=== PATIENT | male | born 1965 | race Caucasian/White ===

== ENCOUNTER 2017-04-12 21:38 | Emergency (ER) | payer MEDICAID ==
[~2017-04-12] VITALS: Ht 172.7 cm; Wt 74.1 kg
[~2017-04-12 21:38] MED LIST: BACL20TA PO; CYCL-1 PO; DICL75TA5 PO; DOCU-28 PO; FENT1PAT7 TOP; FLO0.4C PO; GABA-581 PO; LORA10TA7 PO; PANT-47 PO; PER10325T PO; VENL-191 PO; ZOLP10TA5 PO
[2017-04-12] MEDS ORDERED: ondansetron/PF 4mg/2ml inj IM ONE (22:25)
[2017-04-12] MEDS ORDERED: fentaNYL/PF 50MCG/1 ML 2ML syringe IM ONE (22:25)
[2017-04-12] MEDS ORDERED: ACET-1 PO (23:20)
[2017-04-12 23:36] VITALS: BP 112/75
== END 2017-04-12 23:38 | disposition home or self-care (01) ==
LOC: ER 21:39
DX: S39.92XA Unspecified injury of lower back, initial encounter (principal); J44.9 Chronic obstructive pulmonary disease, unspecified; F17.200 Nicotine dependence, unspecified, uncomplicated; F12.10 Cannabis abuse, uncomplicated; Z88.6 Allergy status to analgesic agent; Z88.8 Allergy status to other drugs, medicaments and biological substances; Y08.89XA Assault by other specified means, initial encounter; Y93.89 Activity, other specified; Y92.89 Other specified places as the place of occurrence of the external cause; Y99.8 Other external cause status
CPT/HCPCS: 72110; 96372; 99284; J2405; J3010

== ENCOUNTER 2020-03-20 09:09 | Emergency (ER) | payer MEDICAID ==
[~2020-03-20] VITALS: Ht 172.7 cm; Wt 77.3 kg
[~2020-03-20 09:09] MED LIST changes: +ACET-1 PO
[2020-03-20 09:35] VITALS: BP 117/74
--- NOTE | 2020-03-20 09:55 | NUR ---
PATIENT STATES HE IS JUST HERE TO GET DRESSING CHANGED OVER THE NEUROSTIMULATOR ON HIS BACK. STATES HE DOES NOT WANT LABWORK DRAWN OR A COVID TEST AT THIS TIME.
== END 2020-03-20 11:11 | disposition home or self-care (01) ==
LOC: ER 09:11
DX: T85.199A Other mechanical complication of other implanted electronic stimulator of nervous system, initial encounter (principal); J44.9 Chronic obstructive pulmonary disease, unspecified; F12.90 Cannabis use, unspecified, uncomplicated; G89.29 Other chronic pain; Z98.890 Other specified postprocedural states; Z60.9 Problem related to social environment, unspecified; Z88.6 Allergy status to analgesic agent; Z88.8 Allergy status to other drugs, medicaments and biological substances; Z79.899 Other long term (current) drug therapy; Y75.8 Miscellaneous neurological devices associated with adverse incidents, not elsewhere classified; Y92.89 Other specified places as the place of occurrence of the external cause
CPT/HCPCS: 99281

== ENCOUNTER 2025-03-06 13:54 | Inpatient (IN) | payer MEDICAID ==
[~2025-03-06] VITALS: Ht 172.7 cm; Wt 70.0 kg
[~2025-03-06 13:54] MED LIST changes: -FLO0.4C PO; +TAMS-55 PO
--- NOTE | 2025-03-06 14:08 | ELECTROCARDIOGRAPH REPORT ---
[facility] Test Date: 2025-03-06 Test Time: 14:07:27 Pat Name: BONNIE VICTORIA Department: EMERGENCY ROOM Room: Gender: M Insurance Claims Processor: PM : 1965 Requested By: RAMON GOMEZ Order Number: [id number] Reading MD: Measurements Intervals [place] Rate: 105 P: 61 VA: 126 QRS: 71 QRSD: 109 T: 78 QT: 348 QTc: 461 Interpretive Statements Sinus tachycardia RSR' in V1 or V2, right VCD or RVH Please click the below link to view image of tracing.
--- NOTE | 2025-03-06 14:14 | Physician Documentation ---
History of Present Illness ~ Chief Complaint: Back Pain Stated Complaint: GI BLEED Time Seen by MD: 13:59 OK to notify your PCP?: Yes Primary Medical Doctor: PAIN MANAGEMENT/ [facility] Source: patient Mode of Arrival: POV Exam Limitations: no limitations HPI 59-year-old male who is here due to epigastric abdominal pain which started 4days ago and today he experience nausea with vomiting and states one of the episodes of emesis was "black." He reports when the epigastric pain started he took Pepto-Bismol and then following this he noticed that his stool was black so he stopped the Pepto-Bismol and was not too concerned but reports today when the black tarry stool returned and he had the nausea and vomiting that was "black" he decided to come to ER. He does have a history of a GI bleed back in 2017 for which he was evaluated here for and had an upper endoscopy. He states he has not had any problems since but he has been taking NSAIDs. He takes NSAIDs for his chronic back pain. Diclofenac 75mg BID. He has never needed a blood transfusion, he does not drink alcohol, he is not on blood thinners. Last colonoscopy approximately 2014 which patient reports was negative EGD 2017 Dr. Landeros +peptic ulcer Medication Reconciliation Allergies: Coded Allergies: methadone (Verified Allergy, Intermediate, AGITATION, 04/12/17) morphine (Verified Allergy, Unknown, 02/16/17) Uncoded Allergies: HAY (Allergy, Mild, WHEEZING, 10/27/14) Scheduled Baclofen (Baclofen), 1 TABLET PO TID, (Reported) Diclofenac Sodium (Diclofenac Sodium), 1 TABLET PO BID Docusate Sodium (Colace), 1 CAP PO DA, (Reported) Fentanyl (Fentanyl), 50 MCG TOP EVERY 72 HR, (Reported) Gabapentin (Gralise), 3 TAB PO HS, (Reported) Loratadine (Loratadine), 1 TAB PO DAILY, (Reported) Oxycodone Hcl/Acetaminophen 10/325 MG* (Percocet 10/325 MG*), 1 TABLET PO DA, (Reported) Pantoprazole Sodium (PROTONIX tablet), 40 MG PO BID Tamsulosin Hcl* (Flomax*), 1 CAP PO DAILY, (Reported) Venlafaxine Hcl* (Effexor*), 1 TABLET PO DAILY, (Reported) Zolpidem Tartrate* (Ambien*), 1 TAB PO HSPRN, (Reported) Scheduled PRN Acetaminophen with Codeine (Acetaminophen-Cod #3 Tablet), 1-2 TAB PO Q4H PRN for pain Cyclobenzaprine* (Cyclobenzaprine*), 1 TABLET PO Q8H PRN for muscle spasms Past Medical History Past Medical History: COPD, GERD, GI Bleed, Chronic Pain, Chronic Back Pain Past Surgical History: orthopedic surgeries Other Past Family History: NONCONTRIBUTORY Alcohol Use: None Drug Use: marijuana Lives with: Alone Lives In: Home Occupation: disabled Review of Systems All Other Systems at this time: Reviewed and Negative Physical Exam Vital Signs: Heart Rate: 117, Respiratory Rate: 21, BP: 92/60, Pulse Oximetry: 99, Weight: 70.000 Oxygen Flow Rate: 0 Physical Exam GENERAL: Alert, PALPEBRAE CONJUNCTIVA SLIGHTLY PALE HEENT: NCAT, EOMI, PERRL, normal oropharynx, moist oral mucosa. NECK: Supple, trachea midline. CARDIAC: Regular rhythm, ELEVATED RATE, no murmurs, rubs, or gallops. PV: Equal distal pulses. No lower extremity edema, cap refill less than 2 seconds. RESPIRATORY: Equal breath sounds, clear to auscultation bilaterally, no respiratory distress. GASTROINTESTINAL: Non distended, soft, EPIGASTRIC TTP, No guarding or rebound. RECTAL: STOOL BLACK POSITIVE FOBT MUSCULOSKELETAL: Normal range of motion, nontender, no swelling. NEUROLOGICAL: Awake, alert, and oriented x 3. SKIN: Warm/dry, no pallor, no rash. PSYCH: Alert and appropriate. Affect congruent with mood. Speech is clear. Good eye contact. Progress Results/Orders Results/Orders Orders - RAMON GOMEZ Occult Bld Stool (03/06/25 13:59) Type And Screen (03/06/25 14:26) Ondansetron Inj. (Zofran 4mg/2ml Vial) (03/06/25 15:05) Page Hospitalist (03/06/25 15:02) Completed Orders - RAMON GOMEZ Cbc/Diff (03/06/25 13:59) Pt Inr (03/06/25 13:59) PTT (03/06/25 13:59) BMP (03/06/25 13:59) Stat Ekg (03/06/25 13:59) Normal Saline 1000ml (0.9% Sodium Chlori (03/06/25 14:10) Pantoprazole 40mg Iv (Protonix 40mg Iv) (03/06/25 14:08) Ondansetron Inj. (Zofran 4mg/2ml Vial) (03/06/25 14:10) Oxycodone 15mg Er Tablet (Oxycontin Ext. (03/06/25 14:49) Medications Received in ER Medications (Trade) Dose Ordered Sig/Ruy Route PRN Reason Start Time Stop Time Status Last Admin Dose Admin (0.9% sodium chloride (NS) 1000ml IV soln) 2,000 ml ONCE ONCE IV 03/06/25 14:10 03/06/25 14:11 DC 03/06/25 14:18 2,000 ML (Protonix 40mg IV) 40 mg STAT STAT IV 03/06/25 14:08 03/06/25 14:12 DC 03/06/25 14:22 40 MG (Zofran 4mg/2ml vial) 4 mg ONCE ONCE IV 03/06/25 14:10 03/06/25 14:11 DC 03/06/25 14:22 4 MG Vital Signs 03/06/25 03/06/25 03/06/25 03/06/25 13:58 14:06 14:30 14:45 Pulse 117 105 99 Resp 25 21 20 19 B/P (MAP) 76/53 92/60 (71) 96/56 (69) 88/38 (55) Pulse Ox 96 99 97 97 O2 Flow Rate 0 0 0 0 03/06/25 14:58 Pulse 97 Resp 16 B/P (MAP) 97/61 (73) Pulse Ox 96 O2 Flow Rate 0 Laboratory Tests Test 03/06/25 14:20 White Blood Count 16.4 H Red Blood Count 3.86 L Hemoglobin 10.9 L Hematocrit 33.5 L Mean Corpuscular Volume 86.9 Mean Corpuscular Hemoglobin 28.3 Mean Corpuscular Hemoglobin Concent 32.6 L Red Cell Distribution Width 13.5 Platelet Count 232 Mean Platelet Volume 9.0 Neutrophils (%) (Auto) 80.2 H Lymphocytes (%) (Auto) 11.5 L Monocytes (%) (Auto) 5.8 Eosinophils (%) (Auto) 1.9 Basophils (%) (Auto) 0.6 Neutrophils # (Auto) 13.2 H Lymphocytes # (Auto) 1.9 Monocytes # (Auto) 0.9 Eosinophils # (Auto) 0.3 Basophils # (Auto) 0.1 CBC Comment Prothrombin Time 10.5 INR International Normalized Ratio 1.0 Activated Partial Thromboplast Time 24 Coagulation Comments Sodium Level 139 Potassium Level 4.4 Chloride Level 103 Carbon Dioxide Level 30.4 Anion Gap 6 L Blood Urea Nitrogen 49 H Creatinine 1.13 H Estimated GFR/1.73 m2 66 BUN/Creatinine Ratio 43.4 H Glucose Level 112 H Calcium Level 8.5 Albumin 2.6 L Chemistry Comments Medical Decision Making Additional information obtaine: old records Findings previous admission 2017 Diff Dx GI Bleed:Consideration: Include: AE fistula, Angiodysplasia, Bleeding diathesis, Blood loss anemia, Carcinoma, Diverticulosis, Diverticulitis, Esophageal varicies, Esophagitis, Gastritis, Gastroenteritis, Inflammatory BD, Alisa-Jenkins syndrome, Meckel's diverticulum, PUD, Other Diff Dx Pain:Considerations: Unlikely: Other Diff Dx N/V/D:Considerations: Unlikely: Other Diff Dx Rectal:Considerations: Unlikely: Other Additional Comments Considering patient's history of a prior upper GI bleed and the fact that he has been having black stool for the past four days with positive fecal occult blood test on exam I am admitting him to the hospitalist service I did make the spice blender aware as well. Departure Time of Disposition: 14:46 Admitted to Inpatient Unit: to hospitalist, other (spice blender ) Impression: Primary Impression: GI bleed Qualified Codes: K92.2 - Gastrointestinal hemorrhage, unspecified Additional Impressions: Epigastric abdominal pain Chronic back pain Qualified Codes: M54.50 - Low back pain, unspecified; G89.29 - Other chronic pain NSAID long-term use Condition: Fair Referrals: NO PRIMARY CARE PROVIDER (PCP) Education Educated: Patient Educated regarding: diagnosis, treatment, need for follow up Signature Scribe Signature: x Attestation: RAMON Gannon Mar 06, 2025 14:14
[2025-03-06] MEDS: normal saline 1000ML IV soln IV ONE (14:18)
[2025-03-06] MEDS: ondansetron/PF 4mg/2ml inj IV ONE ×2 (14:22→15:18)
[2025-03-06 14:35] LABS: MEAN PLATELET VOLUME 9.0 FL (7.4-10.4); RED CELL DISTRIBUTION WIDTH 13.5 % (11.5-14.5)
[2025-03-06 14:43] LABS: CREATININE 1.13 MG/DL (0.60-1.10); TOTAL CARBON DIOXIDE 30.4 MMOL/L (24-32); eCRCL 67 ML/MIN; eGFR 66 ML/MIN
[2025-03-06 14:47] LABS: APTT 24 SECONDS (22-32); INR 1.0 INR
[2025-03-06] MEDS ORDERED: OXYcodone (OXYCONTIN) Ext Release 15 MG TAB.SR.12H PO STA (14:49)
[2025-03-06] MEDS: oxyCODONE SR 10mg (sust. release) tab PO STA (15:16)
[2025-03-06] MEDS ORDERED: magnesium sulf-water 4G/100mL 100 ML IV PRN (16:10)
[2025-03-06] MEDS ORDERED: magnesium Cl slow-release 64mg tablet PO PRN (16:10)
[2025-03-06] MEDS ORDERED: ondansetron/PF 4mg/2ml inj IV PRN (16:10)
[2025-03-06] MEDS ORDERED: potassium Cl 20 mEq SR tablet PO PRN ×2 (16:10)
[2025-03-06] MEDS ORDERED: magnesium hydroxide 30ml (MOM) UD suspension PO PRN (16:10)
[2025-03-06] MEDS ORDERED: mag hydrox/Alum hydrox/simeth 30ml oral suspension PO PRN (16:10)
[2025-03-06] MEDS ORDERED: potassium Cl 40MEQ/1/2NS 520ml 520 ML IV PRN (16:10)
[2025-03-06] MEDS ORDERED: HYDROcodone/acetaminophen 5mg/325mg tablet PO PRN (16:10)
[2025-03-06] MEDS ORDERED: magnesium sulf-water 2g/50mL 50 ML IV PRN (16:10)
--- NOTE | 2025-03-06 16:25 | HISTORY AND PHYSICAL-Residence ---
History & Physical Providers to CC Resident Creating Document: KATJALUCY HAYES RES ~ History of Present Illness Primary Medical Doctor: PAIN MANAGEMENT/ [facility] Reason for Admit\Complaint: Abdominal pain History of Present Illness This is a 59-year-old male with past medical history chronic back pain on NSAIDs comes to the ED with complaints of abdominal pain, hematemesis and black stools. Patient reports that he started having epigastric abdominal pain three weeks ago, on and off, burning/stabbing kind of pain associated with bloating sensation and nausea. Patient reports that this afternoon around 12:30 p.m. he vomited around 5 times, the vomitus was mainly black in color. Along with that he also had three episodes of black tarry stools. Patient reports that he has not been eating much since the last three weeks due to the pain in his stomach, and eating food made the pain worse. Patient says that many years ago he was admitted in the hospital with the same reasons and underwent an endoscopy which showed an ulcer in his stomach. He was asked to stop taking his NSAIDs, but patient says that his PCP continued him on NSAIDs for his pain and he has been taking the medication continuously. He states taking diclofenac 75 mg daily b.i.d. EGD 2017 Dr. Landeros -peptic ulcer Allergies: Coded Allergies: methadone (Verified Allergy, Intermediate, AGITATION, 04/12/17) morphine (Verified Allergy, Unknown, 02/16/17) Uncoded Allergies: HAY (Allergy, Mild, WHEEZING, 10/27/14) Home Medications Home Medications Active Acetaminophen-Cod #3 Tablet (Acetaminophen/Codeine Phosphate) 1 Each Tablet 1-2 Tab PO Q4H PRN Cyclobenzaprine* (Cyclobenzaprine HCl) 10 Mg Tablet 1 Tablet PO Q8H PRN Diclofenac Sodium 75 Mg Tablet.dr 1 Tablet PO BID PROTONIX tablet (Pantoprazole Sodium) 40 Mg Tablet. 40 Mg PO BID Reported Gralise (Gabapentin) 600 Mg Tab.er.24h 3 Tab PO HS 30 Days Ambien* (Zolpidem Tartrate) 10 Mg Tablet 1 Tab PO HSPRN 30 Days Baclofen 20 Mg Tablet 1 Tablet PO TID Flomax* (Tamsulosin HCl) 0.4 Mg Cap.sr.24h 1 Cap PO DAILY 30 Days Loratadine 10 Mg Tablet 1 Tab PO DAILY 30 Days Percocet 10/325 MG* (Oxycodone/Acetaminophen) 10 Mg/325 Mg Tablet 1 Tablet PO DA Colace (Docusate Sodium) 100 Mg Capsule 1 Cap PO DA Fentanyl 1 Each Patch.td72 50 Mcg TOP EVERY 72 HR Effexor* (Venlafaxine HCl) 37.5 Mg Tablet 1 Tablet PO DAILY Past Medical History Past Medical History Peptic ulcer Chronic back pain Past Social History Social History Comment Patient's smokes one pack of cigarettes per day, for almost 45 years Denies alcohol use Denies any illicit drug use Patient lives at home all by himself PCP at [facility] He is currently permanently disabled Alcohol Use: None Drug Use: Marijuana Lives with: Alone Lives In: Home Occupation: disabled ROS All Other Systems: Reviewed and Negative ROS Constitutional: No fever, reports dizziness, no weakness, decrease in appetite HEENT: Normal vision. No sore throat, epistaxis, tinnitus Cardiovascular: No chest pain/discomfort, palpitations, no syncope. no pedal edema Respiratory: Reports mild sob, cough, five episodes hemoptysis Gastrointestinal: Reports epigastric abdominal pain, nausea, no vomiting. No diarrhea, three episodes of melena. Genitourinary: No frquency, urgency, incontinence, nocturia. No dysuria, hematuria Musculoskeletal: Normal, no pains Endocrine: No fatigue, polydipsia, polyuria. No heat or cold intolerance Neurologic: No headache, vertigo. No weakness, numbness or tingling of extremities Psychiatric: No hallucinations/delusions, no anhedonia, no suicidal ideation Hematologic: No bruises Exam Vitals: Vital Signs Date Time Temp Pulse Resp B/P (MAP) Pulse Ox O2 Delivery O2 Flow Rate FiO2 03/06/25 14:58 97 16 97/61 (73) 96 0 General: General: Alert, awake, oriented, not in acute distress HEENT: PERRLA, no icterus, pallor, lymphadenopathy, carotid bruit Respiratory system: Bilateral vesicular breath sounds heard, no adventitious breath sounds CVS: S1-S2 heard, no murmurs/rubs/gallop GI: Soft, mild tender present in the upper part of the abdomen, no organomegaly, no guarding/rigidity, bowel sounds present Neuro: No focal neurological deficits present Mental status exam: alert and consciousness, orientation, memory, speech - Cranial nerve test: Cranial nerves 2-12 intact - Motor system: Nutrition, Tone 3+, Power 5/5, no involuntary movements - Sensory system: Intact - Reflex testing: Biceps, triceps and knee reflexes 2+ - Cerebellar: Normal Extremities: No edema cyanosis clubbing/deformities Skin: Warm and dry Diagnostic Data Last Recorded Lab Results: 03/06/25 1420 03/06/25 1420 Diagnostic Data: Laboratory Tests Test 03/06/25 14:20 Prothrombin Time 10.5 SECONDS (9.0-12.0) INR International Normalized Ratio 1.0 INR Activated Partial Thromboplast Time 24 SECONDS (22-32) Coagulation Comments Advance Care Planning Advanced Care plannin - 30 Minutes (Full code) Additional Plan Abdominal pain Hematemesis, melena Likely due to upper GI bleed Increased BUN creatinine ratio Patient had five episodes of hematemesis, three episodes of black tarry stools Blood pressure on the softer side 97/61. Patient was given 2 L NS bolus in the ED Currently he is hemodynamically stable with no active bleeding. Currently patient on maintenance fluids NS 100 cc/hour. Patient given one dose of pantoprazole 40 mg IV in the ED. Started the patient on pantoprazole 40 mg IV b.i.d. Patient on Zofran for nausea will hold his diclofenac in view of possible upper GI bleed. GI consulted awaiting recommendations. NPO after midnight. ZAYNAB- Likely prerenal Creatinine 1.13, baseline 0.74 BUN 49 will continue to monitor creatinine level. Code Status: Full code DVT Prophylaxis: None Lines/Tubes: PIV Nutrition: NPO after midnight PT:yes Prognosis: Guarded Lucy Calvo PGY-1 Date of Service: Mar 06, 2025 Billing Provider: LAN MOORE MD Common Visit Codes: 99627-[id number] INP/OBS CARE (HIGH) Secondary Visit Codes: 93454-[id number] CARE PLAN 30 MINUTES LUCY CALVO, RES Mar 06, 2025 16:24 LAN MOORE MD Mar 07, 2025 07:42
[2025-03-06 16:28] LABS: OCCULT BLOOD STOOL POSITIVE (Neg)
--- NOTE | 2025-03-06 17:02 | RADIOLOGY REPORT ---
EXAM: DI CHEST,SINGLE VIEW HISTORY: routine TECHNIQUE: 1 view of the chest COMPARISON: None FINDINGS/IMPRESSION: LUNGS: No pleural effusion, consolidation, or pneumothorax. Peribronchial thickening, which is nonspecific however may represent infectious versus inflammatory bronchitis. Question peripheral interstitial edema MEDIASTINUM: Unremarkable. BONES: No acute osseous abnormality. OTHER: None.
[2025-03-06] MEDS: normal saline 1000ml 1,000 ML IV SCH (17:06)
--- NOTE | 2025-03-06 18:13 | RADIOLOGY REPORT ---
EXAM: CT CT ABDOMEN PELVIS INDICATION: Possible cholecystitis TECHNIQUE: Volumetric multidetector CT images of the abdomen and pelvis were obtained without contrast. All CT scans at this facility use dose modulation, iterative reconstruction, and/or weight based dosing when appropriate to reduce radiation dose to as low as reasonably achievable. COMPARISON: None FINDINGS: [LOWER CHEST]: Atelectasis in bilateral lung bases. Left lower lobe 6 mm pulmonary nodule of the left hemidiaphragm in the lateral basilar segment with the additional 1 mm scattered micro nodules. The cardiac size is normal without pericardial effusion. Coronary artery calcifications. [LIVER]: Geographic areas of hepatic steatosis. Normal hepatic size without suspicious focal lesion. [GALLBLADDER AND BILIARY TREE]: Gallbladder is decompressed with possible trace pericholecystic inflammatory stranding. No significant intramural edema. Alveolar dilation. No CT apparent cholelithiasis. Consider further evaluation with dedicated right upper quadrant ultrasound. [SPLEEN]: Unremarkable. [PANCREAS]: Unremarkable. [ADRENAL GLANDS]: Fat containing left adrenal gland adenoma measuring 1.6 cm, benign. [KIDNEYS]: 1 mm nonobstructive right renal caliceal stones. Bilateral renal vascular calcifications. No hydroureter or hydronephrosis. No nephroureterolithiasis. No suspicious focal lesion. [BLADDER]: Unremarkable for the degree distention. [REPRODUCTIVE ORGANS]: Mild prostatomegaly. [BOWEL/MESENTERY]: Stomach is distended with an air-fluid level. Lyrc-mk-[id number] stool burden. Correlate for constipation. Suspected mild sigmoid diverticulosis. [ASCITES]: Absent [LYMPHADENOPATHY]: No pathologically enlarged lymph nodes by CT size criteria [VASCULATURE]: Vascular calcifications. No aneurysmal dilatation. [ABDOMINAL WALL]: Unremarkable. [MUSCULOSKELETAL]: No acute fracture or aggressive focal osseous lesion. Multilevel degenerative change of the lumbar spine with posterior fusion hardware at L5-S1 with intervertebral disc spacer. IMPRESSION: 1. Decompressed gallbladder with possible trace pericholecystic inflammatory stranding. No significant intramural edema. No CT apparent cholelithiasis. 2. Consider further evaluation with dedicated right upper quadrant ultrasound. 3. Hujb-yo-qfostftb stool burden. Correlate for constipation. 4. Left lower lobe 6 mm pulmonary nodule. Recommend follow-up CT chest in 6-12 months. 5. Severe geographic areas of hepatic steatosis. 6. Significant stomach distention with an air-fluid level correlate for underlying gastritis.
--- NOTE | 2025-03-06 18:55 | DISCHARGE SUMMARY-Residence ---
Discharge Summary Providers to CC Resident Creating Document: LUCY KERNS RES ~ Discharge Summary Admission Diagnosis: GI bleed Hospital Course DATE OF ADMISSION: 03/06/25 DATE OF AMA : 03/06/25 Discharge Diagnosis\Comment: Upper GI bleed ZAYNAB Operations\Procedures: NONE Consultants: Gastroenterology Complications: None Condition on DC: Unstable Discharge Summary: This is a 59-year-old male with past medical history chronic back pain on NSAIDs comes to the ED with complaints of abdominal pain, hematemesis and black stools. Patient reports that he started having epigastric abdominal pain three weeks ago, on and off, burning/stabbing kind of pain associated with bloating sensation and nausea. Patient reports that this afternoon around 12:30 p.m. he vomited around 5 times, the vomitus was mainly black in color. Along with that he also had three episodes of black tarry stools. Patient reports that he has not been eating much since the last three weeks due to the pain in his stomach, and eating food made the pain worse. Patient says that many years ago he was admitted in the hospital with the same reasons and underwent an endoscopy which showed an ulcer in his stomach. He was asked to stop taking his NSAIDs, but patient says that his PCP continued him on NSAIDs for his pain and he has been taking the medication continuously. He states taking diclofenac 75 mg daily b.i.d. While further evaluating the patient, patient left AMA even despite talking to him in detail about the risks about leaving AMA, including . *Problems/Diagnosis: (1) NSAID long-term use Status: Acute (2) GI bleed Status: Acute Total Time Spent on D/C: > 30 Minutes Date of Service: Mar 06, 2025 Billing Provider: LAN MOORE MD Problem Qualifiers (1) GI bleed: GI bleed type/associated pathology: unspecified gastrointestinal hemorrhage type Qualified Codes: K92.2 - Gastrointestinal hemorrhage, unspecified LUCY KERNS RES Mar 06, 2025 18:55
[2025-03-06 19:25] VITALS: BP 124/80; PULSE 80; RESP 18; TEMP 98.1; O2SAT 99
[2025-03-06] MEDS ORDERED: K and/or MAG REPLACEMENT MC SCH (20:00)
[2025-03-06] MEDS ORDERED: docusate sod 100mg capsule PO SCH (20:00)
== END 2025-03-06 19:08 | disposition left against medical advice (07) | DRG 253 ==
LOC: ER 13:54 → ED HOLD 15:25
PROVIDERS: ADMIT Internal Medicine; ATTEND Internal Medicine
DX: K92.0 Hematemesis (principal); N17.9 Acute kidney failure, unspecified; K92.1 Melena; J44.9 Chronic obstructive pulmonary disease, unspecified; F17.210 Nicotine dependence, cigarettes, uncomplicated; G89.29 Other chronic pain; M54.50 Low back pain, unspecified; Z53.29 Procedure and treatment not carried out because of patient's decision for other reasons; K21.9 Gastro-esophageal reflux disease without esophagitis; Z88.5 Allergy status to narcotic agent; Z88.8 Allergy status to other drugs, medicaments and biological substances; Z79.1 Long term (current) use of non-steroidal anti-inflammatories (NSAID)
CPT/HCPCS: 36415; 71045; 80048; 82272; 83036; 85025; 85610; 85730; 86885; 86900; 86901; 93005; 96361; 96374; 96375; 96376; 99285; G0378; J2405; J2470; J7030